=== PATIENT | female | born 1995 | race African-American/Black ===

== ENCOUNTER 2017-07-06 04:34 | Emergency (ER) | payer SELFPAY ==
[2017-07-06 04:44] VITALS: BP 146/82; BMI 21.4
[2017-07-06] MEDS ORDERED: ZOFRAN INJ 4 MG VIAL ONE (04:44)
[2017-07-06] MEDS ORDERED: NS 1000 ML 1,000 ML IV ONE ×2 (04:50→05:44)
[2017-07-06] MEDS ORDERED: TORADOL 30 MG VIAL IVP ONE (04:51)
[2017-07-06] MEDS ORDERED: ZOFRAN INJ 4 MG VIAL IVP ONE (04:51)
[2017-07-06] MEDS ORDERED: NS 1000 ML 1,000 ML ONE ×2 (04:52→05:45)
[2017-07-06] MEDS ORDERED: TORADOL 30 MG VIAL ONE (04:52)
--- NOTE | 2017-07-06 04:53 | DR.GENAD ---
HPI - PCP Primary Care Physician: NFD - Complaint/Symptoms Chief Complaint Doctors Comments: Patient admits to nausea and vomiting onset with menstrual cycle. Chief Complaint:: PT C/O ABD PAIN NAUSEA VOMITING FOR 1 HOUR Self Treatment fo Chief Complaint: MIDOL WITHOUT RELIEF - Source History Provided: Patient - Mode of Arrival Mode of Arrival: Ambulatory - Timing Onset of Chief Complaint: 07/06/17 PMH - PMH Past Medical History: No Past Surgical History: No - Family History History of Family Medical Conditions: No - Social History Does patient currently use any type of tobacco product: No Type of Tobacco Use: Cigarettes Does any household member use tobacco: No Alcohol Use: None Do you use any recreational Drugs:: No Lives With: Family Lives Where: Home - infectious screening In the last 2 months have you had wt loss of >10#?: NO Have you had fever, night sweats or hemotysis?: No Have you traveled outside the country in the last 6 months?: No Isolation: Standard ROS - Review of Systems Eyes: No Symptoms Reported ENTM: No Symptoms Reported Respiratoy: No Symptoms Reported Cardiovascular: No Symptoms Reported Gastrointestinal/Abdominal: No Symptoms Reported Genitourinary: No Symptoms Reported Neurological: No Symptoms Reported Musculoskeletal: No Symptoms Reported Integumentary: No Symptoms Reported Hematologic/Lymphatic: No Symptoms Reported Endocrine: No Symptoms Reported Psychiatric: No Symptoms Reported All Other Systems: Reviewed and Negative PE - Vital Signs Vitals: Temperature 97.7 F Pulse Rate 81 Respiratory Rate 18 Blood Pressure 146/82 O2 Sat by Pulse Oximetry 99 - General Limitations: No Limitations General Appearance: Alert, In No Apparent Distress - Head Head Exam: Normal Inspection, Atraumatic - Eyes Eye exam: Normal Appearance, PERRL, EOMI - ENT ENT Exam: Normal Exam, Normal Oropharynx External Ear Exam: Normal External Inspection TM/Canal Exam: Bilateral Normal Nose Exam: Normal Nose Exam Mouth Exam: Normal Inspection Throat Exam: Normal Inspection - Neck Neck Exam: Normal Inspection, Full ROM - Chest Chest Inspection: Normal Inspection - Respiratory Respiratory Exam: Normal Lung Sounds Bilat Respiratory Exam: Bilateral Clear to Auscultation - Cardiovascular Cardiovascular Exam: Regular Rate, Normal Rhythm - Abdominal Exam Abdominal Exam: Normal Inspection, Normal Bowel Sounds Abdominal Tenderness: Diffuse - Extremities Extremities Exam: Normal Inspection, Full ROM - Back Back Exam: Normal Inspection, Full ROM - Neurologic Neurological Exam: Alert, Oriented X3, CN II-XII Intact - Psychiatric Psychiatric Exam: Normal Affect - Skin Skin Exam: Warm, Dry, Intact Course - Reevaluation 1st: Improved ROR - Labs Reviewed Result Diagrams: 07/06/17 06:30 07/06/17 06:30 Laboratory: WBC 8.1 X10^3/uL (3.6-10.0) 07/06/17 06:30 RBC 4.66 X10^6/uL (3.5-5.4) 07/06/17 06:30 Hgb 14.2 g/dL (12.0-16.0) 07/06/17 06:30 Hct 43.0 % (36.0-47.0) 07/06/17 06:30 MCV 92.3 fL (80.0-100.0) 07/06/17 06:30 MCH 30.5 pg (27.0-34.0) 07/06/17 06:30 MCHC 33.1 g/dL (33.0-35.0) 07/06/17 06:30 RDW 14.0 % (11.6-16.5) 07/06/17 06:30 Plt Count 210 X10^3/uL (150.0-450.0) 07/06/17 06:30 MPV 10.3 fL (7.4-11.0) 07/06/17 06:30 Neut % (Auto) 81.4 % (42.0-75.0) H 07/06/17 06:30 Lymph % (Auto) 13.6 % (21.0-51.0) L 07/06/17 06:30 [place] % (Auto) 4.6 % (0.0-13.0) 07/06/17 06:30 Eos % (Auto) 0.1 % (0.9-2.9) L 07/06/17 06:30 Baso % (Auto) 0.3 % (0.2-1.0) 07/06/17 06:30 Neut # (Auto) 6.6 x10^3/uL (2.2-4.8) H 07/06/17 06:30 Lymph # (Auto) 1.1 X10^3/uL (1.3-2.9) L 07/06/17 06:30 [place] # (Auto) 0.4 x10^3/uL (0.3-0.8) 07/06/17 06:30 Eos # (Auto) 0.0 x10^3/uL (0.0-0.2) 07/06/17 06:30 Baso # (Auto) 0.0 X10^3/uL (0.0-0.1) 07/06/17 06:30 Absolute Nucleated RBC 0.1 /100WBC 07/06/17 06:30 Sodium 141 mmol/L (136-145) 07/06/17 06:30 Corrected Sodium 142 mmol/L (136-145) 07/06/17 06:30 Potassium 4.2 mmol/L (3.5-5.1) 07/06/17 06:30 Chloride 108 mmol/L (98-107) H 07/06/17 06:30 Carbon Dioxide 25.7 mmol/L (21-32) 07/06/17 06:30 BUN 8 mg/dL (7-18) 07/06/17 06:30 Creatinine 0.76 mg/dL (0.55-1.02) 07/06/17 06:30 Est GFR (MDRD) Af Amer > 60 (>60) 07/06/17 06:30 Est GFR (MDRD) Non-Af > 60 (>60) 07/06/17 06:30 Glucose 123 mg/dL (65-99) H 07/06/17 06:30 Calcium 7.4 mg/dL (8.5-10.1) L 07/06/17 06:30 C-Reactive Protein 1.40 mg/L (0-3.0) 07/06/17 06:30 - Diagnosis Discharge Problem: Constipation Qualifiers: Constipation type: slow transit constipation Qualified Code(s): K59.01 - Slow transit constipation - Discharge Plan Condition: Stable - Follow ups/Referrals Follow ups/Referrals: NFD,None [Primary Care Provider] - 3 days - Instructions Instructions: Constipation, Adult, [id number]
[2017-07-06] MEDS ORDERED: MORPHINE SULFATE INJ 4 MG IVP ONE (05:43)
[2017-07-06] MEDS ORDERED: COMPAZINE INJ IVP ONE (05:43)
[2017-07-06] MEDS ORDERED: COMPAZINE INJ ONE (05:45)
[2017-07-06] MEDS ORDERED: MORPHINE SULFATE INJ 4 MG ONE (05:45)
[2017-07-06 06:55] LABS: BASOPHILS % (AUTO) 0.3 % (0.2-1.0); EOSINOPHILS % (AUTO) 0.1 % (0.9-2.9); HEMOGLOBIN 14.2 g/dL (12.0-16.0); LYMPHOCYTES # (AUTO) 1.1 X10^3/uL (1.3-2.9); LYMPHOCYTES % (AUTO) 13.6 % (21.0-51.0); MEAN CORPUSCULAR HEMOGLOBIN 30.5 pg (27.0-34.0); MEAN CORPUSCULAR HGB CONC 33.1 g/dL (33.0-35.0); MEAN CORPUSCULAR VOLUME 92.3 fL (80.0-100.0); MEAN PLATELET VOLUME 10.3 fL (7.4-11.0); MONOCYTES # (AUTO) 0.4 x10^3/uL (0.3-0.8); MONOCYTES % (AUTO) 4.6 % (0.0-13.0); NEUTROPHILS # (AUTO) 6.6 x10^3/uL (2.2-4.8); NEUTROPHILS % (AUTO) 81.4 % (42.0-75.0); PLATELET COUNT 210 X10^3/uL (150.0-450.0); RED BLOOD COUNT 4.66 X10^6/uL (3.5-5.4); WHITE BLOOD COUNT 8.1 X10^3/uL (3.6-10.0)
[2017-07-06 07:06] LABS: BLOOD UREA NITROGEN 8 mg/dL (7-18); CALCIUM 7.4 mg/dL (8.5-10.1); CARBON DIOXIDE 25.7 mmol/L (21-32); CHLORIDE 108 mmol/L (98-107); COR NA(FOR HYPERGLY) 142 mmol/L (136-145); CREATININE 0.76 mg/dL (0.55-1.02); SODIUM 141 mmol/L (136-145); eGFR BLACK RACES > 60 (>60); eGFR NON BLACK RACES > 60 (>60)
== END 2017-07-06 07:31 | disposition home or self-care (01) ==
LOC: ER 04:34
DX: K59.01 Slow transit constipation (principal)
CPT/HCPCS: 36415; 80048; 85025; 86140; 96365; 96367; 96374; 96375; 99282; 99283; A4222; J0780; J1885; J2270; J2405